=== PATIENT | male | born 1935 | race Caucasian/White ===

== ENCOUNTER 2019-06-21 06:00 | Outpatient (RCR) | payer MEDICARE, MEDICAID, SELFPAY | END 2019-07-19 00:01 | LOC: LAB 06:00 | PROVIDERS: Family Provider Internal Medicine; Visit Provider Nurse Practitioner Family | DX: I12.0 Hypertensive chronic kidney disease with stage 5 chronic kidney disease or end stage renal disease (principal); N18.6 End stage renal disease; D64.9 Anemia, unspecified; Z99.2 Dependence on renal dialysis; Z79.82 Long term (current) use of aspirin; M86.172 Other acute osteomyelitis, left ankle and foot | CPT/HCPCS: 36415; 80048; 85025 ==

== ENCOUNTER 2019-06-21 07:49 | Outpatient (RCR) | payer MEDICARE, MEDICAID, SELFPAY | END 2019-07-19 00:01 | LOC: WOUND 07:49 | PROVIDERS: Family Provider Internal Medicine; Visit Provider Thoracic Surgery (Cardiothoracic Vascular Surgery) | DX: S91.302A Unspecified open wound, left foot, initial encounter (principal); X58.XXXA Exposure to other specified factors, initial encounter | CPT/HCPCS: 11042; 97605 ==